=== PATIENT | female | born 1970 | race Two or more races ===

== ENCOUNTER 2022-11-20 13:06 | Emergency (ER) | payer BC ==
[~2022-11-20] VITALS: Ht 157.5 cm; Wt 80.0 kg
[2022-11-20 14:06] LABS: Basophils # (auto) 0.1 10 ^3/uL (0-0.2); Eosinophils # (auto) 0.1 10 ^3/uL (0-0.8); Eosinophils % (auto) 1.3 % (0.0-7.0); Monocytes # (auto) 0.5 10 ^3/uL (0-1.3); Nucleated Red Blood Cells % 0.1 %
[2022-11-20 14:08] LABS: Basophils % (auto) 1.1 % (0.0-2.0); Hemoglobin 10.6 g/dL (12.2-16.2); Lymphocytes # (auto) 1.9 10 ^3/uL (0.4-5.4); Lymphocytes % (auto) 22.2 % (10.0-50.0); Mean Corpuscular Hgb Conc. 32.3 g/dL (32.0-36.0); Mean Corpuscular Volume 71.2 fL (80.0-100.0); Monocytes % (auto) 6.4 % (0.0-12.0); Neutrophils # (auto) 5.9 10 ^3/uL (1.6-8.6); Red Blood Cells 4.63 10^6/uL (4.0-5.20); Red Cell Distribution Width 15.2 % (11.8-14.3); White Blood Cell 8.6 10^3/uL (4.4-10.8)
[2022-11-20 14:21] LABS: INR 0.94 (0.9-1.15); Partial Thromboplastin Time 23.1 sec (24.6-33.4)
[2022-11-20 14:41] LABS: Calcium 9.2 mg/dL (8.5-10.1); Magnesium 2.2 mg/dL (1.6-2.6); Potassium 4.4 mmol/L (3.5-5.1)
[2022-11-20 14:44] LABS: BUN/Creatinine Ratio 18.2; Bilirubin, Total 0.2 mg/dL (0.2-1.0); Total Protein 7.9 g/dL (6.4-8.2)
[2022-11-20] MEDS ORDERED: MECL1TAB42 PO ×2 (16:30)
[2022-11-20] MEDS ORDERED: SODIUM CHLORIDE 0.9% 1,000 ML IV ONE ×2 (17:00)
[2022-11-20 19:06] VITALS: BP 112/61
[2022-11-22] MEDS ORDERED: MECL1TAB42 PO (12:01)
== END 2022-11-20 19:17 | disposition home or self-care (01) ==
LOC: ER 13:06
DX: R07.89 Other chest pain (principal); R42 Dizziness and giddiness; Z98.51 Tubal ligation status
CPT/HCPCS: 36415; 70450; 71045; 80053; 83735; 83880; 84484; 85025; 85610; 85730; 93005; 96360; 99285; J7030